=== PATIENT | female | born 1980 ===

== ENCOUNTER 2016-07-25 19:31 | Emergency (ER) | payer OTHER ==
[2016-07-25] MEDS ORDERED: ONDANSETRON HCL 4 MG/2 ML SOL IV ONE (19:50)
[2016-07-25] MEDS ORDERED: ONDANSETRON HCL 4 MG/2 ML SOL ONE (19:51)
[2016-07-25 19:57] VITALS: RESP 22; TEMP 98.3
[2016-07-25] MEDS ORDERED: SODIUM CHLORIDE 0.9% 1000ML 1,000 ML IV SCH (20:00)
[2016-07-25] MEDS ORDERED: KETOROLAC TROMETHAMINE 30 MG/ML SOL IV ONE (20:01)
[2016-07-25] MEDS ORDERED: SODIUM CHLORIDE 0.9% FLUSH 10 ML SOL IV PRN (20:01)
[2016-07-25 20:02] LABS: BASOPHILS % (AUTO) 1 % (0-3); EOSINOPHILS % (AUTO) 1 % (0-9); HEMATOCRIT 37 % (35-47); MEAN CORPUSCULAR HGB CONC 33.2 gm/dl (32.0-36.0); MEAN CORPUSCULAR VOLUME 85 fL (81-99); MONOCYTES % (AUTO) 5.2 % (0-12); NEUTROPHILS % (AUTO) 63.6 % (37-80)
[2016-07-25] MEDS ORDERED: KETOROLAC TROMETHAMINE 30 MG/ML SOL ONE (20:02)
[2016-07-25 20:20] LABS: ALBUMIN 3.6 gm/dl (3.4-5.0); CALCIUM 8.1 mg/dl (8.5-10.1); POTASSIUM 3.2 mMol/L (3.5-5.1)
[2016-07-25 20:54] LABS: AMPHETAMINES NEGATIVE (NEGATIVE); METHADONE NEGATIVE (NEGATIVE); OPIATES(OP13) NEGATIVE (NEGATIVE); OXYCODONE(OXY) NEGATIVE (NEGATIVE); PROPOXYPHENE(PPX) NEGATIVE (NEGATIVE); TRICYCLIC ANTIDEPRESSANTS NEGATIVE (NEGATIVE)
[2016-07-25] MEDS ORDERED: SODIUM CHLORIDE 0.9% 1000ML 1,000 ML IV ONE (20:54)
[2016-07-25 22:23] VITALS: BP 115/71; PULSE 85; O2SAT 99
== END 2016-07-25 22:20 | disposition home or self-care (01) ==
LOC: ED 19:31
DX: F10.129 Alcohol abuse with intoxication, unspecified (principal); R51 Headache; M25.512 Pain in left shoulder
CPT/HCPCS: 99285 ×3; 80053; 80301; 84703; 85025; J1885; J2405; 70450; 80305; 80307; 96365; 96366; 96374; 96375; 99283

== ENCOUNTER 2017-01-08 14:11 | Observation (INO) | payer OTHER ==
[2017-01-08 15:04] LABS: BASOPHILS % (AUTO) 1 % (0-3); EOSINOPHILS % (AUTO) 1 % (0-9); HEMATOCRIT 34 % (35-47); MEAN CORPUSCULAR HGB CONC 33.6 gm/dl (32.0-36.0); MEAN CORPUSCULAR VOLUME 90 fL (81-99); NEUTROPHILS % (AUTO) 57.3 % (37-80)
[2017-01-08] MEDS ORDERED: SODIUM CHLORIDE 0.9% 1000ML 1,000 ML IV ONE ×2 (15:10→16:57)
[2017-01-08 15:14] LABS: CALCIUM 8.3 mg/dl (8.5-10.1); MAGNESIUM 1.9 mg/dl (1.8-2.4); POTASSIUM 3.3 mMol/L (3.5-5.1)
[2017-01-08 15:41] LABS: APPEARANCE,URINE Slightly Cloudy; BILIRUBIN,URINE NEGATIVE (NEGATIVE); COLOR,URINE Yellow; GLUCOSE, URINE (UA) NEGATIVE (NEGATIVE); KETONES,URINE 1+ (NEGATIVE); LEUKOCYTE ESTERASE ,URINE 2+ (NEGATIVE); NITRATE,URINE POSITIVE (NEGATIVE); OCCULT BLOOD,URINE NEGATIVE (NEG-TRACE); PH,URINE 5.5
[2017-01-08 15:49] LABS: AMPHETAMINES POSITIVE (NEGATIVE); METHADONE NEGATIVE (NEGATIVE); OPIATES(OP13) NEGATIVE (NEGATIVE); RBC,URINE NEG (0-3AV/HPF); TRICYCLIC ANTIDEPRESSANTS NEGATIVE (NEGATIVE)
[2017-01-08 15:50] LABS: OXYCODONE(OXY) NEGATIVE (NEGATIVE); PROPOXYPHENE(PPX) NEGATIVE (NEGATIVE)
[2017-01-08] MEDS ORDERED: FLUTICASONE PROPIONATE IH PRN (20:34)
[2017-01-08] MEDS ORDERED: LEVONORGESTREL VAG SCH (20:45)
[2017-01-08] MEDS: DEXTROSE/SALINE 0.45/KCL 20MEQ 1,000 ML/1,000 ML SOL IV SCH (21:12)
[2017-01-08] MEDS: LEVETIRACETAM 250 MG TAB PO SCH (21:13)
[2017-01-09] MEDS ORDERED: ACETAMINOPHEN 325 MG PO PRN (00:52)
[2017-01-09] MEDS: DEXTROSE/SALINE 0.45/KCL 20MEQ 1,000 ML/1,000 ML SOL IV SCH ×2 (04:10→11:54)
[2017-01-09] MEDS: LEVETIRACETAM 250 MG TAB PO SCH (08:42)
[2017-01-09 08:57] VITALS: BP 100/58; PULSE 64; RESP 18; TEMP 97.6; O2SAT 97
[2017-01-09] MEDS ORDERED: FLUOXETINE HYDROCHLORIDE 10 MG CAP PO SCH (09:00)
[2017-01-09] MEDS ORDERED: CELECOXIB 100 MG CAP PO SCH (09:00)
[2017-01-09] MEDS ORDERED: NICOTINE 7 MG PATCH TD SCH (09:00)
[2017-01-09] MEDS ORDERED: POLYETHYLENE GLYCOL 17 GM/1 TBS PDS PO SCH (09:00)
[2017-01-09] MEDS: Non-Formulary Medication MISC (Fluticasone Propionate 1 SPR) NAS SCH (09:05)
== END 2017-01-09 12:20 | disposition home or self-care (01) ==
LOC: ED 14:11 → UNDOADMOB 20:26 → ACUTE CARE 20:26
PROVIDERS: ADMIT Family Medicine; ATTEND Family Medicine
DX: F15.10 Other stimulant abuse, uncomplicated (principal); T42.8X1A Poisoning by antiparkinsonism drugs and other central muscle-tone depressants, accidental (unintentional), initial encounter; R41.82 Altered mental status, unspecified
CPT/HCPCS: 36415; 70450; 80048; 80305; 80307; 81001; 83735; 84100; 84484; 85025; 87077; 87088; 87186; 93005; 93012; 96365; 96366; 99218; 99285

== ENCOUNTER 2018-01-09 00:46 | Emergency (ER) | payer OTHER ==
[2018-01-09 01:07] VITALS: RESP 16; TEMP 97.8
[2018-01-09 01:34] VITALS: BP 118/74; PULSE 78; O2SAT 99
== END 2018-01-09 01:32 ==
LOC: ED 00:46
DX: Z02.89 Encounter for other administrative examinations (principal)
CPT/HCPCS: 82962; 99282

== ENCOUNTER 2019-02-10 23:30 | Emergency (ER) | payer BC, OTHER | END 2019-02-11 02:10 | disposition short-term general hospital (02) | LOC: ED 23:30 ==